=== PATIENT | female | born 1960 | race Caucasian/White ===

== ENCOUNTER → 2019-05-02 12:52 | Outpatient (BNVA) | payer MEDICARE, MEDICAID, SELFPAY | PROVIDERS: Family Provider Physician Assistant; PCP Physician Assistant; Visit Provider Nurse Practitioner | DX: F43.12 Post-traumatic stress disorder, chronic (principal); F41.1 Generalized anxiety disorder; F17.218 Nicotine dependence, cigarettes, with other nicotine-induced disorders | CPT/HCPCS: 99214; 99215 ==

== ENCOUNTER 2019-05-15 13:30 | Outpatient (CLI) | payer MEDICARE, MEDICAID, SELFPAY ==
--- NOTE | 2019-05-15 13:42 | MR_ITS ---
WS: [id number] MRI NECK with and without CONTRAST. COMPARISON: 01/14/2016 Multiplanar, multisequence imaging is performed with and without contrast. Soft tissues and osseous structures to the neck are symmetric and normal. No edema. No muscle loss or asymmetry. There is mild breathing motion artifact through the upper thorax. Thyroid gland and saliv arsenio glands are normal. No masses or adjacent inflammatory process. No adenopathy. Visualized larynx i s negative. Mild degenerative disc disease and bulging in the cervical spine has been described by MRI. No cord c ompression. MR/MR orbit face neck wo/w* [id number] IMPRESSION: No neck mass or adenopathy or enhancing mass identified. Study is not adequate to exclude subtle lesions in the larynx or parapharyngeal soft tissues.
== END 2019-05-15 13:31 | disposition home or self-care (01) ==
LOC: RADWPI 13:37
PROVIDERS: Family Provider Physician Assistant; PCP Physician Assistant; Visit Provider Specialist
DX: H92.02 Otalgia, left ear (principal); H93.13 Tinnitus, bilateral; H90.3 Sensorineural hearing loss, bilateral
CPT/HCPCS: 70543; A9579

== ENCOUNTER → 2019-07-25 07:44 | Outpatient (BNVA) | payer MEDICARE, MEDICAID, SELFPAY | PROVIDERS: Family Provider Physician Assistant; PCP Physician Assistant; Visit Provider Nurse Practitioner | DX: F43.12 Post-traumatic stress disorder, chronic (principal); F41.1 Generalized anxiety disorder | CPT/HCPCS: 99213 ==

== ENCOUNTER 2019-08-27 08:43 | Outpatient (CLI) | payer MEDICARE, MEDICAID, SELFPAY ==
--- NOTE | 2019-08-27 09:07 | MR_ITS ---
WS: [id number] MRI THORACIC SPINE with and without contrast. HISTORY: ARACHNOID CYST OF SPINE COMPARISON: 07/22/2017 and 05/21/2016 TECHNIQUE: Multiplanar sequences are performed in sagittal and axial planes. Status post T3-T6 posterior laminectomies. Mild increase in thoracic kyphosis. Mild change in caliber of the thoracic cord at the T3 level is similar to prior studies. Increasing CSF surrounding the pos terior cord at this level. On the lateral projection there is an increased T2 signal posterior to the thoracic cord causing mild displacement anteriorly and flattening. This change in caliber of the cor d extends over a length of approximately 3 cm centered at the T3 level. No enhancing masses are ident ified. No signal abnormality within the cord. No significant stenosis. No focal disc herniations or contact on the thoracic cord. No enhancing mass es. MR/MR thoracic spine wo/w [id number] IMPRESSION: 1. Stable appearance MRI of thoracic spine over multiple prior years. 2. Prior laminectomies from T3 through T6. 3. Continued mild flattening and mass effect on the thoracic cord at the T3 le derrek. May be due to small adhesions or a small recurrent/residual arachnoid cyst . There is very slight tethering and mass effect on the posterior cord over kyra gth of 3 cm which is similar to prior studies.
== END 2019-08-27 08:44 | disposition home or self-care (01) ==
LOC: RADWPI 08:47
PROVIDERS: Family Provider Physician Assistant; PCP Physician Assistant; Visit Provider Specialist
DX: G93.0 Cerebral cysts (principal)
CPT/HCPCS: 72157; A9579

== ENCOUNTER 2019-09-20 07:56 | Outpatient (CLI) | payer MEDICARE, MEDICAID, SELFPAY ==
--- NOTE | 2019-09-20 08:02 | XR_ITS ---
WS: [id number] CERVICAL SPINE FLEXION EXTENSION TECHNIQUE: 3 views of the cervical spine: lateral neutral, flexion and extension views. CLINICAL INFORMATION: cerevical pain COMPARISON: October 06, 2017 FINDINGS: Straightening of the normal cervical lordosis. Mild spondylitic changes. Normal alignment on the neut ral view. No instability on flexion-extension. Disc space narrowing worse at C5-C6 and C6-C7. Posterior elements are normal. No other significant findings. XR/XR cervical spine fl/ex [id number] IMPRESSION: 1. Straightening of the normal cervical lordosis with mild spondylitic changes . 2. No instability on flexion extension. 3. Disc space narrowing worse at C5-C6 and C6-C7.
--- NOTE | 2019-09-20 08:02 | XR_ITS ---
WS: [id number] LUMBAR SPINE FLEXION AND EXTENSION TECHNIQUE: 3 views of the lumbar spine: Lateral neutral, flexion, and extension views. CLINICAL INFORMATION: lumbar pain COMPARISON: None. FINDINGS: Slight exaggeration of the normal lumbar lordosis with normal alignment on the neutral view. Slight a nterolisthesis L4 on L5 measuring 2 mm. Mild flexion instability. Mild chronic anterior wedging lower thoracic spine at T12. Moderate facet arthropathy L4-L5 and L5-S1. XR/XR lumbar spine f/e only [id number] IMPRESSION: 1. Mild lumbar curve. Normal alignment on the neutral view. 2. Mild flexion instability measuring 2 mm L4-5. 3. Moderate facet arthropathy L4-L5 and L5-S1. 4. Chronic anterior wedging at T12
--- NOTE | 2019-09-20 08:02 | MR_ITS ---
WS: [id number] MRI LUMBAR SPINE NONCONTRAST TECHNIQUE: Sagittal T1, T2 and STIR imaging. Axial T1 and T2 imaging. CLINICAL INFORMATION: lumbar pain COMPARISON: MRI December 10, 2015 FINDINGS: Mild lumbar curve. No acute compression. Mild chronic compression superior endplate T12 is unchanged since 2016. No high-grade central canal stenosis. Mild disc bulging L4-L5 and L5-S1 with a tiny annul ar fissure L5-S1. Prior postoperative changes laminectomies T3-T5 with ventral displacement of the th oracic core unchanged and described on the recent thoracic spine MRI. L1-L2: Normal. L2-L3: Mild facet arthropathy. Spinal canal foramen are patent. L3-L4: Mild annular bulging. Slight narrowing of the right subarticular recess with encroachment nyasia ersing right L4 nerve root. Mild right and no significant left foraminal narrowing. Mild to moderate facet arthropathy. Spinal canal is patent. L4-L5: Mild annular bulging with slight narrowing of the left subarticular recess. Encroachment trave rsing left L5 nerve root. Mild left and no significant right foraminal narrowing. Mild/moderate facet arthropathy. L5-S1: Tiny right pericentral protrusion with slight contact of the traversing right S1 nerve root wi th a tiny annular fissure. Mild left and no significant right foraminal narrowing. Mild facet arthrop athy. Visualized pelvic bony structures: Normal. Paravertebral soft tissues: Normal. MR/MR lumbar spine wo con* [id number] IMPRESSION: 1. Mild lumbar curve. No acute compression. No high-grade central canal stenos is. 2. Mild chronic compression at T12 superior endplate is unchanged. 3. Small right pericentral protrusion L5-S1 with a tiny annular fissure slight ly impinges the traversing right S1 nerve root. This is not significantly kim ed since 2016. Mild left L5-S1 foraminal narrowing. 4. Annular bulging L3-4 with slight narrowing of the right subarticular recess and encroachment traversing L4 nerve root. Mild right foraminal narrowing. 5. Mild annular bulging L4-5 with slight encroachment traversing left L5 nerve root. Mild left foraminal narrowing. 6. Mild to moderate facet arthropathy L3-L4, L4-L5 and L5-S1.
--- NOTE | 2019-09-20 08:02 | MR_ITS ---
WS: [id number] MRI CERVICAL SPINE NONCONTRAST TECHNIQUE: Sagittal T1, T2 and STIR imaging. Axial T2, gradient, and fiesta imaging. CLINICAL INFORMATION: cevical pain COMPARISON: MRI cervical October 06, 2017 and MRI December 13, 2016, MRI July 25, 2015 FINDINGS: Prior postoperative changes laminectomies in the upper thoracic spine at T3-T5. Stable ventral displa cement of the thoracic cord at T3-4 with mild flattening. This is unchanged in appearance since the t horacic MRI August 27, 2019. Straightening of the normal cervical lordosis. Cord signal is normal. C2-C3: Normal. C3-C4: Mild osteophytic ridging. Mild facet arthropathy. Spinal canal and foramen are patent. C4-C5: No significant disc bulging. Mild facet arthropathy. Spinal canal and foramen are patent. C5-C6: Mild disc osteophytic ridging. Mild central canal stenosis. Moderate right and no significant left foraminal narrowing. Mild facet arthropathy. C6-C7: Mild disc osteophyte complex with endplate ridging. Mild to moderate right and no significant left foraminal narrowing. Moderate facet arthropathy. C7-T1: Small central disc protrusion with tiny annular fissure. Mild left and no significant right fo raminal narrowing. Spinal canal is patent Visualized brain stem structures: Normal. Prevertebral soft tissues: Normal. MR/MR cervical spin wo con* [id number] IMPRESSION: 1. Straightening of the normal cervical lordosis. Cord signal is normal. 2. Disc osteophyte complex C5-C6 and moderate right foraminal narrowing unchan ged. Mild central canal stenosis at this level. 3. Mild to moderate right C6-C7 bony foraminal narrowing. 4. Small central disc protrusion at C7-T1 with a tiny annular fissure is uncha nged. Mild left foraminal narrowing at this level. 5. Stable prior postoperative changes T3-T5 with ventral displacement of the t horacic cord with mild flattening. This is unchanged since the recent thoracic spine MRI.
== END 2019-09-20 07:57 | disposition home or self-care (01) ==
LOC: RADWPI 08:01
PROVIDERS: Family Provider Physician Assistant; PCP Physician Assistant; Visit Provider Specialist
DX: G89.29 Other chronic pain (principal); M47.816 Spondylosis without myelopathy or radiculopathy, lumbar region; M48.54XA Collapsed vertebra, not elsewhere classified, thoracic region, initial encounter for fracture; M51.26 Other intervertebral disc displacement, lumbar region; M25.78 Osteophyte, vertebrae; M48.02 Spinal stenosis, cervical region
CPT/HCPCS: 72040; 72120; 72141; 72148

== ENCOUNTER → 2019-10-18 07:55 | Outpatient (BNVA) | payer MEDICARE, MEDICAID, SELFPAY | PROVIDERS: Family Provider Physician Assistant; PCP Physician Assistant; Visit Provider Nurse Practitioner | DX: F41.1 Generalized anxiety disorder (principal); F43.12 Post-traumatic stress disorder, chronic | CPT/HCPCS: 99213 ==

== ENCOUNTER → 2019-12-24 09:19 | Outpatient (BNVA) | payer MEDICARE, MEDICAID, SELFPAY | PROVIDERS: Family Provider Physician Assistant; PCP Physician Assistant; Referring Provider Specialist; Visit Provider Specialist | DX: G43.019 Migraine without aura, intractable, without status migrainosus (principal); G96.19 Other disorders of meninges, not elsewhere classified; F41.1 Generalized anxiety disorder; Z87.891 Personal history of nicotine dependence | CPT/HCPCS: 96372; 99203; J1885 ==

== ENCOUNTER → 2020-01-07 08:08 | Outpatient (BNVA) | payer MEDICARE, MEDICAID, SELFPAY | PROVIDERS: Family Provider Physician Assistant; PCP Physician Assistant; Visit Provider Nurse Practitioner | DX: F43.12 Post-traumatic stress disorder, chronic (principal); F41.1 Generalized anxiety disorder | CPT/HCPCS: 99213 ==

== ENCOUNTER 2020-02-04 11:24 | Outpatient (CLI) | payer MEDICARE, MEDICAID, SELFPAY ==
--- NOTE | 2020-02-04 11:28 | MM_ITS ---
WS: [id number] BILATERAL SCREENING DIGITAL MAMMOGRAM WITH CAD HISTORY: SCREENING COMPARISON: 06/15/2018 and 03/22/2017 and 11/18/2014 Bilateral CC and MLO views submitted. Computer aided detection analyzed. Breast composition: The breasts are heterogeneously dense, which may obscure small masses. No suspici ous masses, microcalcifications or architectural distortion. MM/[place] [id number] IMPRESSION: BI-RADS: 1-Negative FOLLOW UP: 1 Year Follow-up
== END 2020-02-04 11:25 | disposition home or self-care (01) ==
LOC: RADSHAW 11:27
PROVIDERS: PCP Physician Assistant; Visit Provider Physician Assistant
DX: Z12.31 Encounter for screening mammogram for malignant neoplasm of breast (principal)
CPT/HCPCS: 77067

== ENCOUNTER 2020-02-11 07:12 | Outpatient (CLI) | payer MEDICARE, MEDICAID, SELFPAY ==
--- NOTE | 2020-02-11 07:15 | CT_ITS ---
WS: [id number] LDCT LUNG CANCER SCREENING TECHNIQUE: Noncontrast CT of the chest with coronal and sagittal reformatted images. CLINICAL INFORMATION: HX OF TOBACCO USE COMPARISON: None. DLP: 54.85 mGy.cm DIvol: 1.[address] scans at [facility] use at least one of these dose optimization techniques: automat ed exposure control; mA and/or kV adjustment per patient size (includes targeted exams where dose is matched to clinical indication); or iterative reconstruction. FINDINGS: Mild chronic emphysematous changes. No acute pulmonary infiltrates. No focal pneumonia. No pleural fl uid. Thyroid gland is normal. No mediastinal or hilar lymphadenopathy. No axillary lymphadenopathy. Normal GE junction. No suspicious pulmonary parenchymal abnormalities. Mild thoracic kyphosis. Decomp ressive dorsal laminectomy defects in the upper thoracic spine. CT/CT lung screening [id number] IMPRESSION: LUNG-RADS: 1-Negative FOLLOW UP: 12 Month: Continue annual screening with LDCT
== END 2020-02-11 07:13 | disposition home or self-care (01) ==
LOC: CT 07:12
PROVIDERS: PCP Physician Assistant; Visit Provider Physician Assistant
DX: Z12.2 Encounter for screening for malignant neoplasm of respiratory organs (principal); Z87.891 Personal history of nicotine dependence
CPT/HCPCS: G0297

== ENCOUNTER → 2020-04-03 08:32 | Outpatient (BNVA) | payer MEDICARE, MEDICAID, SELFPAY | PROVIDERS: PCP Physician Assistant; Visit Provider Nurse Practitioner | DX: F43.12 Post-traumatic stress disorder, chronic (principal); F41.1 Generalized anxiety disorder | CPT/HCPCS: 99214; 99203 ==

== ENCOUNTER → 2020-05-05 08:07 | Outpatient (BNVA) | payer MEDICARE, MEDICAID, SELFPAY | PROVIDERS: PCP Physician Assistant; Visit Provider Nurse Practitioner | DX: F43.12 Post-traumatic stress disorder, chronic (principal); F41.1 Generalized anxiety disorder | CPT/HCPCS: 99213 ==

== ENCOUNTER → 2020-07-29 09:10 | Outpatient (BNVA) | payer MEDICARE, MEDICAID, SELFPAY | PROVIDERS: PCP Physician Assistant; Visit Provider Nurse Practitioner | DX: F43.12 Post-traumatic stress disorder, chronic (principal); F41.1 Generalized anxiety disorder | CPT/HCPCS: 99214 ==

== ENCOUNTER → 2020-08-20 08:56 | Outpatient (BNVA) | payer MEDICARE, MEDICAID, SELFPAY | PROVIDERS: PCP Physician Assistant; Visit Provider Physician Assistant | DX: Z01.812 Encounter for preprocedural laboratory examination (principal); Z20.822 Contact with and (suspected) exposure to COVID-19 | CPT/HCPCS: 87635 ==

== ENCOUNTER 2020-08-26 08:09 | Outpatient (CLI) | payer MEDICARE, MEDICAID, SELFPAY ==
--- NOTE | 2020-08-26 12:32 | PFTS_ITS ---
Date of Study:08/26/20 Date of Dictation: MECHANICS: Forced vital capacity (FVC) is normal. Forced expiratory volume in one second (FEV1) is normal. FEV1/FVC is normal. FLOW VOLUME LOOP: Mild scooping. LUNG VOLUMES: Total lung capacity (TLC) is normal. Residual volume (RV) is increased. DIFFUSING CAPACITY FOR CARBON MONOXIDE: Normal. INTERPRETATION: The prebronchodilator spirometry is consistent with mild restriction. The postbronchodilator spirometry is normal. There is a significant postbronchodilator response. Lung volumes are consistent with air trapping. Gas exchange (DLCO) is normal. MTDD
== END 2020-08-26 08:10 | disposition home or self-care (01) ==
LOC: RT 08:12
PROVIDERS: PCP Physician Assistant; Visit Provider Physician Assistant
DX: R06.02 Shortness of breath (principal)
CPT/HCPCS: 94060; 94726; 94729; J7611

== ENCOUNTER 2020-09-25 10:28 | Outpatient (CLI) | payer MEDICARE, MEDICAID, SELFPAY ==
--- NOTE | 2020-09-25 10:15 | USCV_ITS ---
Olga Marshall Age: 60 Gender: F : 1960 Exam Date: 09/25/2020 10:55 Ordering Phys: Georges Fuentes MD ([email or web address]) Technologist: Tiana Bocanegra [place] [facility] [place]ication: Chest pain BP: 120 / 78 HR: 57 Rhythm: Sinus Technical Quality: Fair MEASUREMENTS (Male / Female) Normal Values 2D ECHO LV Diastolic Diameter PLAX 3.4 cm 4.2 - 5.9 / 3.9 - 5.3 cm LV Systolic Diameter PLAX 2.3 cm LV Chamber Size 3.6 cm IVS Diastolic Thickness 1.2 cm 0.6 - 1.0 / 0.6 - 0.9 cm IVS Systolic Thickness 1.6 cm LVPW Diastolic Thickness 1.2 cm 0.6 - 1.0 / 0.6 - 0.9 cm LVPW Systolic Thickness 1.0 cm RV Chamber Size 2.6 cm LVOT Diameter 1.7 cm LV Ejection Fraction 2D Teich 61.1 % LV Ejection Fraction MOD 2C 52.9 % LV Ejection Fraction 2C AL 55.6 % LA Diameter 2.6 cm LA Width 1.8 cm LA Height 3.5 cm RA Width 2.9 cm RA Height 3.4 cm Aorta at Sinotubular Diameter 2.1 cm M-MODE LV Diastolic Diameter MM 4.6 cm 4.2 - 5.9 / 3.9 - 5.3 cm LV Systolic Diameter MM 2.7 cm LV Ejection Fraction MM Teich 72.9 % IVS Diastolic Thickness MM 0.9 cm 0.6 - 1.0 / 0.6 - 0.9 cm IVS Systolic Thickness MM 1.1 cm LVPW Diastolic Thickness MM 1.0 cm 0.6 - 1.0 / 0.6 - 0.9 cm LVPW Systolic Thickness MM 1.3 cm RV Diastolic Diameter MM 0.9 cm Aortic Annulus Diameter 2.8 cm LA Ao Ratio MM 1.2 MV E Point Septal Separation 0.4 cm DOPPLER LVOT Peak Velocity 111.0 cm/s MV Area PHT 4.8 cm squared Mitral E to A Ratio 1.1 MV E' Velocity 36.5 cm/s Mitral E to MV E' Ratio 4.8 Mitral E to LV E' Lateral Ratio 4.6 Mitral E to LV E' Septal Ratio 5.0 TR Peak Velocity 193.1 cm/s TR Peak Gradient 14.9 mmHg TR Mean Velocity 182.3 cm/s TR Mean Gradient 13.9 mmHg TR Velocity Time Integral 75.9 cm TV Peak E Velocity 56.0 cm/s Right Atrial Pressure 3.0 mmHg Pulmonary Artery Systolic Pressu 17.9 mmHg PV Peak Velocity 56.0 cm/s RV Acceleration Time 0.1 s RV Ejection Time 0.3 s RV AcT/ET 0.4 FINDINGS Left Ventricle Normal left ventricular cavity size. Normal left ventricular systolic function. No regional wall motion abnormalities. Left ventricular ejection fraction is estimated at 60 %. Grade II/IV diastolic dysfunction, moderately elevated filling pressures. Right Ventricle The right ventricle is normal in size and function. Right Atrium The right atrium is normal in size. Left Atrium The left atrium is normal in size. Mitral Valve Structurally normal mitral valve without significant stenosis or prolapse. There is no mitral regurgitation. Aortic Valve Mild aortic valve calcification. No aortic valve stenosis. Trace aortic valve regurgitation. Tricuspid Valve Structurally normal tricuspid valve without significant stenosis or regurgitation. Pulmonary artery systolic pressure is normal. Pulmonic Valve Structurally normal pulmonic valve without significant stenosis. There is no pulmonic regurgitation. Pericardium Normal pericardium without effusion. Aorta Normal ascending aorta dimension. CONCLUSIONS 1-Normal left ventricular cavity size. Normal left ventricular systolic function. No regional wall motion abnormalities. Left ventricular ejection fraction is estimated at 60 %. Grade II/IV diastolic dysfunction, moderately elevated filling pressures. 2-Structurally normal mitral valve without significant stenosis or prolapse. There is no mitral regurgitation. 3-Mild aortic valve calcification. No aortic valve stenosis. Trace aortic valve regurgitation. 4-There is no pericardial effusion. 5-Pulmonary artery systolic pressure is within normal limits. 6-When compared to the prior echocardiogram dated November 15, 2014 there is no significant change Georges Fuentes MD (Electronically Signed) Final Date: 27 September 2020 12:52 S
--- NOTE | 2020-09-25 11:00 | USCV_ITS ---
JoannaOlga boyer Age: 60 Gender: F : 1960 Exam Date: 09/25/2020 10:20 Ordering Phys: Georges Fuentes MD ([email or web address]) Technologist: Tiana Bocanegra Exam Location: [facility] [place] Indication: Leg pain RIGHT LEFT Brachial 104.00 mmHg Brachial 104.00 mmHg Pressure (mmHg) Waveform Pressure (mmHg) Waveform 113.00 RECREATION ATTENDANT 109.00 113.00 DPA 111.00 1.09 Ankle/Brachial Index 1.07 130.00 Pre-Exercise Toe Pressure 78.00 1.25 Pre-Exercise Toe/Brachial Index 0.75 FINDINGS See measurements listed above. Normal resting ABIs bilaterally Normal resting TBIs bilaterally CONCLUSIONS No significant arterial obstruction, based on the above findings Dr Trey Sotomayor MD FACC (Electronically Signed) Final Date: 25 September 2020 16:38 S
== END 2020-09-25 10:29 | disposition home or self-care (01) ==
LOC: RAD 10:31
PROVIDERS: PCP Physician Assistant; Visit Provider Internal Medicine Cardiovascular Disease
DX: M79.604 Pain in right leg (principal); R07.9 Chest pain, unspecified; R06.02 Shortness of breath; M79.605 Pain in left leg; I35.1 Nonrheumatic aortic (valve) insufficiency
CPT/HCPCS: 93306; 93922

== ENCOUNTER 2020-10-09 09:09 | Outpatient (CLI) | payer MEDICARE, MEDICAID, SELFPAY ==
[2020-10-09 09:27] VITALS: BMI 22.4
--- NOTE | 2020-10-09 09:35 | NMCV_ITS ---
NM ivan perf SPECT r/s* [id number] Olga Marshall Age: 60 Gender: F : 1960 Exam Date: 10/09/2020 10:19 Ordering Phys: Georges Fuentes MD ([email or web address]) Technologist: SEBASTIAN Osborne Exam Location: [facility] Indications: CHEST PAIN STRESS TEST [facility] IMAGE PROTOCOL Rest/Stress 1 Exercise Day Radiopharmaceutical Dose (mCi) Administration Site Administered by Rest: Tc-99m 10.5 IV SEBASTIAN John Sestamimaurisio Stress:Tc-99m 31.8 IV SEBASTIAN John Sestamimaurisio Rest: 09-Oct-2020 60 Discovery 630 Stress: 09-Oct-2020 30 Discovery 630 Radiopharmaceutical was injected at 85 % maximum heart rate. Images obtained in supine and prone position. SPECT RESULTS Technical Quality: Excellent Raw Data Analysis: Normal Image Corrections: No attenuation or motion correction applied Summed Stress Score: 0 Summed Rest Score: 0 Summed Difference Score: 0 PERFUSION FINDINGS There is homogenous radiotracer uptake throughout the myocardium. No evidence of ischemia is noted FUNCTIONAL RESULTS (calculated via Gated SPECT) Stress Image LV EF (%): 80 Stress EDV (mL):65 TID: 1 Stress ESV (mL):13 FUNCTIONAL FINDINGS: There is normal left ventricular systolic function. IMPRESSIONS 1. Normal myocardial perfusion imaging with no evidence of ischemia 2. LV systolic function is normal Duarte Barreto MD (Electronically Signed) Final Date: 09 October 2020 16:46 S
--- NOTE | 2020-10-09 09:35 | ECG_ITS ---
[facility] Test Date: 2020-10-09 Pat Name: Olga Marshall Department: Room: Gender: Female Spot Remover: : 1960 Requested By: Jaz Fuentes Order Number: [id number] Kenia MD: JAZ FUENTES Interpretive Statements NAME OF STUDY: EXERCISE SESTAMIBI STRESS TEST INDICATION: Chest Pain; Shortness of Breath EXERCISE DATA: The patient was exercised by Erich protocol. Baseline heart rate was 51 beats per minute. Baseline blood pressure was 129/74 millimeters of mercury. Target heart rate was 160 beats per minute. Maximum heart rate achieved was 140, which was 87 % of the target heart rate. Maximum blood pressure was 164/97 millimeters of mercury. Total exercise time was 10 minutes 30 seconds. Maximum METs achieved was 13.5, maximum VO2 was 47.3. The reason for ending the test was maximum effort achieved. The patient complained of shortness of breath during the stress test, which then resolved at the end of the test. ELECTROCARDIOGRAM: BASELINE: Showed sinus rhythm, normal axis, no significant ST-T changes at the baseline noted. EXERCISE: At the peak exercise level, nonspecific inferior ST changes otherwise no significant ST-T changes suggestive of ischemia noted. RECOVERY: During the recovery period, heart rate dropped appropriately. No significant ST-T changes in the recovery suggestive of ischemia noted. CONCLUSION: 1. Exercise capacity good. 2. Heart rate response was appropriate. 3. Blood pressure response was appropriate. 4. Symptoms not suggestive of ischemia. 5. Electrocardiogram portion of the stress test was not suggestive of ischemia. 6. Nuclear scan will be documented separately. Electronically Signed On 10-13-2020 21:18:59 CDT by JAZ FUENTES [id number]
[2020-10-09 11:48] VITALS: BP 126/68; PULSE 73
== END 2020-10-09 09:10 | disposition home or self-care (01) ==
LOC: CDL 09:11
PROVIDERS: PCP Physician Assistant; Visit Provider Internal Medicine Cardiovascular Disease
DX: R07.9 Chest pain, unspecified (principal); R06.02 Shortness of breath
CPT/HCPCS: 78452; 93017; A9500

== ENCOUNTER → 2020-10-21 14:52 | Outpatient (BNVA) | payer MEDICARE, MEDICAID, SELFPAY | PROVIDERS: PCP Physician Assistant; Visit Provider Nurse Practitioner | DX: F43.12 Post-traumatic stress disorder, chronic (principal); F41.1 Generalized anxiety disorder | CPT/HCPCS: 99214 ==

== ENCOUNTER → 2021-01-13 12:13 | Outpatient (BNVA) | payer MEDICARE, MEDICAID, SELFPAY | PROVIDERS: PCP Physician Assistant; Visit Provider Nurse Practitioner | DX: F41.1 Generalized anxiety disorder (principal); F17.218 Nicotine dependence, cigarettes, with other nicotine-induced disorders; F43.12 Post-traumatic stress disorder, chronic | CPT/HCPCS: 99214 ==

== ENCOUNTER → 2021-02-26 10:21 | Outpatient (BNVA) | payer MEDICARE, MEDICAID, SELFPAY | PROVIDERS: PCP Physician Assistant; Referring Provider Physician Assistant; Visit Provider Orthopaedic Surgery | DX: M50.020 Cervical disc disorder with myelopathy, mid-cervical region, unspecified level (principal) | CPT/HCPCS: 72050 ==

== ENCOUNTER 2021-03-03 06:00 | Outpatient (RCR) | payer MEDICARE, MEDICAID, SELFPAY | END 2021-03-24 23:59 | disposition home or self-care (01) | LOC: TPT 06:00 | PROVIDERS: PCP Physician Assistant; Referring Provider Orthopaedic Surgery; Visit Provider Orthopaedic Surgery | DX: M54.2 Cervicalgia (principal) | CPT/HCPCS: 97110; 97140; 97162 ==

== ENCOUNTER → 2021-03-09 15:19 | Outpatient (BNVA) | payer MEDICARE, MEDICAID, SELFPAY | PROVIDERS: PCP Physician Assistant; Visit Provider Specialist | DX: G43.019 Migraine without aura, intractable, without status migrainosus (principal); H53.8 Other visual disturbances; M50.90 Cervical disc disorder, unspecified, unspecified cervical region; F41.1 Generalized anxiety disorder; Z87.891 Personal history of nicotine dependence | CPT/HCPCS: 99214; 99215 ==

== ENCOUNTER 2021-03-16 15:29 | Outpatient (CLI) | payer MEDICARE, MEDICAID, SELFPAY ==
--- NOTE | 2021-03-16 16:00 | MR_ITS ---
WS: [id number] MRI CERVICAL SPINE NONCONTRAST HISTORY: M50.90 - Cervical disc disorder, unspecified. COMPARISON: 09/20/2019 Technique: Multiplanar, multisequence noncontrast imaging of the cervical spine. Very mild straightening of the normal cervical lordosis. C5 retrolisthesis by 2 mm. Mild disc space n arrowing and desiccation throughout the cervical spine. There is slight anterior wedging of C7 which is stable. No marrow edema. Patient has prior and previously described laminectomy defects in the upp er thoracic spine starting at T3 which are incompletely included on this examination. There is a foca l area of atrophy and cortical thinning at the T3 level which has been present described and probably related to prior trauma or adhesions. Signal within the cervical cord is normal. Visualized posterior fossa is unremarkable. Craniocervical junction, C1 and C2 relationship, odontoid process and soft tissues are normal. C2-C3: Normal. C3-C4: Mild facet arthritis. No stenosis. C4-C5: Mild diffuse osteophytic ridging and facet arthritis. No stenosis. C5-C6: Mild diffuse annular disc bulging and osteophytic ridging. Mild encroachment upon the ventral thecal sac, greatest on the RIGHT. Effacement of ventral CSF resulting in moderate RIGHT and mild LEF T foraminal stenosis. Mild bilateral facet arthritis. Similar to the prior exam. C6-C7: Mild diffuse annular disc bulging. Moderate RIGHT foraminal disc osteophyte complex with signi ficant displacement of the exiting nerve roots. There is at least moderate RIGHT foraminal stenosis. Mild facet arthritis. C7-T1: Mild annular disc bulging with a central disc protrusion. Very slight narrowing of the LEFT fo ramen. No significant stenosis. Mild facet arthritis. Paraspinal soft tissue are normal. MR/MR cervical spin wo con* [id number] IMPRESSION: 1. MRI cervical spine is similar to the study of 09/20/2019. 2. Moderate RIGHT foraminal stenosis at C6-7 due to disc osteophyte complex. 3. Mild central stenosis at C5-6 with moderate RIGHT and mild LEFT foraminal s tenosis due to disc and osteophyte disease. 4. Mild facet arthritis from C3-4 through C6-7.
--- NOTE | 2021-03-16 16:45 | MR_ITS ---
WS: [id number] MRI THORACIC SPINE noncontrast. HISTORY: Bilateral arm numbness. History of arachnoid cyst. COMPARISON: 08/27/2019, 07/22/2017 TECHNIQUE: Multiplanar sequences are performed in sagittal and axial planes. Status post prior T3, T4 and T5 laminectomy defects. Focal narrowing and concave defect in the thorac ic cord at the T3 level is stable and may be due to adhesions or postsurgical. No fractures or marrow edema. T1-2: Normal. T2-3: Normal. T3-4: Normal. T4-5: Normal. T5-6: Normal. T6-7: Normal. T7-8: Mild facet arthritis. No stenosis. T8-9: Mild facet arthritis. T9-10: Mild bilateral facet arthritis, LEFT greater than RIGHT. T10-11: Mild facet arthritis. T11-12: Normal. MR/MR thoracic spin wo con* [id number] IMPRESSION: 1. Status post thoracic laminectomies at T3, T4 and T5. 2. Concave deformity involving the posterior thoracic cord at T3 is similar to prior studies. May be due to an adhesion or postsurgical in etiology. Neverthe less no interval change. No myelomalacia. 3. No significant central or foraminal stenosis.
== END 2021-03-16 15:30 | disposition home or self-care (01) ==
LOC: RADSHAW 15:32
PROVIDERS: PCP Physician Assistant; Visit Provider Orthopaedic Surgery
DX: Z98.890 Other specified postprocedural states; M50.90 Cervical disc disorder, unspecified, unspecified cervical region
CPT/HCPCS: 72141; 72146

== ENCOUNTER 2021-03-17 15:04 | Outpatient (CLI) | payer MEDICARE, MEDICAID, SELFPAY ==
--- NOTE | 2021-03-17 15:05 | MM_ITS ---
WS: [id number] BILATERAL SCREENING DIGITAL MAMMOGRAM WITH CAD HISTORY: SCREENING COMPARISON: 02/04/2020 and 03/22/2017 and 06/15/2018 Bilateral CC and MLO views submitted. Computer aided detection analyzed. Breast composition: The breasts are heterogeneously dense, which may obscure small masses. No suspici ous masses, microcalcifications or architectural distortion. MM/[place] [id number] IMPRESSION: BI-RADS: 1-Negative FOLLOW UP: 1 Year Follow-up
== END 2021-03-17 15:05 | disposition home or self-care (01) ==
LOC: RADSHAW 15:04
PROVIDERS: PCP Physician Assistant; Visit Provider Physician Assistant
DX: Z12.31 Encounter for screening mammogram for malignant neoplasm of breast (principal)
CPT/HCPCS: 77067

== ENCOUNTER 2021-03-25 06:00 | Outpatient (RCR) | payer MEDICARE, MEDICAID, SELFPAY | END 2021-04-08 23:59 | disposition home or self-care (01) | LOC: TPT 06:00 | PROVIDERS: PCP Physician Assistant; Referring Provider Orthopaedic Surgery; Visit Provider Orthopaedic Surgery | DX: M54.2 Cervicalgia (principal) | CPT/HCPCS: 97110; 97164; 97530 ==

== ENCOUNTER → 2021-04-07 08:20 | Outpatient (BNVA) | payer MEDICARE, MEDICAID, SELFPAY | PROVIDERS: PCP Physician Assistant; Visit Provider Nurse Practitioner | DX: F43.12 Post-traumatic stress disorder, chronic (principal); F41.1 Generalized anxiety disorder; F17.218 Nicotine dependence, cigarettes, with other nicotine-induced disorders | CPT/HCPCS: 99214 ==

== ENCOUNTER 2021-04-08 09:30 | Outpatient (CLI) | payer MEDICARE, MEDICAID, SELFPAY ==
--- NOTE | 2021-04-08 09:30 | MR_ITS ---
WS: [id number] MRA HEAD TECHNIQUE: Axial 3-D TOF images obtained with axial images and axial, sagittal, and coronal 2-D refor matted images. CLINICAL INFORMATION: G43.019 - Migraine without aura, intractable, without sta... COMPARISON: MRI head CTA to FINDINGS: Distal vertebral arteries are patent. Basilar artery is patent. Normal vascularity to the SHIPPING PROCESSOR territo ry bilaterally. Both ICAs are patent at the skull base. Normal cavernous carotid arteries. Normal vascularity to the NATHANIEL and MCA territories bilaterally. No evidence of proximal flow limiting stenosis or aneurysm. MR/MR angio head con [id number] IMPRESSION: Normal intracranial MRA.
== END 2021-04-08 09:31 | disposition home or self-care (01) ==
LOC: RADSHAW 09:35
PROVIDERS: PCP Physician Assistant; Visit Provider Specialist
DX: G43.019 Migraine without aura, intractable, without status migrainosus (principal)
CPT/HCPCS: 70544

== ENCOUNTER → 2021-05-11 10:38 | Outpatient (BNVA) | payer MEDICARE, MEDICAID, SELFPAY | PROVIDERS: PCP Physician Assistant; Visit Provider Specialist | DX: G43.809 Other migraine, not intractable, without status migrainosus (principal); F17.200 Nicotine dependence, unspecified, uncomplicated | CPT/HCPCS: 99214 ==

== ENCOUNTER → 2021-07-06 13:57 | Outpatient (BNVA) | payer MEDICARE, MEDICAID, SELFPAY | PROVIDERS: PCP Physician Assistant; Visit Provider Nurse Practitioner | DX: F43.12 Post-traumatic stress disorder, chronic (principal); F41.1 Generalized anxiety disorder; F17.218 Nicotine dependence, cigarettes, with other nicotine-induced disorders | CPT/HCPCS: 99214 ==

== ENCOUNTER → 2021-07-20 09:35 | Outpatient (BNVA) | payer MEDICARE, MEDICAID, SELFPAY | PROVIDERS: PCP Physician Assistant; Visit Provider Obstetrics & Gynecology | DX: Z12.4 Encounter for screening for malignant neoplasm of cervix (principal) | CPT/HCPCS: 87624 ==

== ENCOUNTER → 2021-10-05 13:45 | Outpatient (BNVA) | payer MEDICARE, MEDICAID, SELFPAY | PROVIDERS: PCP Physician Assistant; Visit Provider Nurse Practitioner | DX: F43.12 Post-traumatic stress disorder, chronic (principal); F41.1 Generalized anxiety disorder; F17.218 Nicotine dependence, cigarettes, with other nicotine-induced disorders | CPT/HCPCS: 99214 ==

== ENCOUNTER → 2021-10-27 10:33 | Outpatient (BNVA) | payer MEDICARE, MEDICAID, SELFPAY | PROVIDERS: PCP Physician Assistant; Visit Provider Orthopaedic Surgery | DX: M50.020 Cervical disc disorder with myelopathy, mid-cervical region, unspecified level (principal) | CPT/HCPCS: 99213; 99214 ==

== ENCOUNTER → 2021-11-24 14:20 | Outpatient (BNVA) | payer MEDICARE, MEDICAID, SELFPAY | PROVIDERS: PCP Physician Assistant; Referring Provider Orthopaedic Surgery; Visit Provider Internal Medicine | DX: Z87.891 Personal history of nicotine dependence (principal); W22.8XXA Striking against or struck by other objects, initial encounter; M81.0 Age-related osteoporosis without current pathological fracture; M25.50 Pain in unspecified joint; T07.XXXA Unspecified multiple injuries, initial encounter | CPT/HCPCS: 99204 ==

== ENCOUNTER → 2021-12-07 13:45 | Outpatient (BNVA) | payer MEDICARE, MEDICAID, SELFPAY | PROVIDERS: PCP Physician Assistant; Visit Provider Internal Medicine Cardiovascular Disease | DX: R07.2 Precordial pain (principal); R06.02 Shortness of breath; F41.1 Generalized anxiety disorder; R00.1 Bradycardia, unspecified | CPT/HCPCS: 93005; 99213; 99214 ==

== ENCOUNTER 2021-12-17 13:58 | Outpatient (CLI) | payer MEDICARE, MEDICAID, SELFPAY ==
--- NOTE | 2021-12-17 14:30 | XR_ITS ---
WS: [id number] DEXA (DUAL ENERGY X-RAY ABSORPTIOMETRY) Bone mineral density was performed using a [employer] machine. HISTORY: Osteoporosis COMPARISON: 01/07/2016 Lumbar spine BMD (L1-L4): 0.801 g/cm2 T score: -3.2 Z score: -1.4 Total hip BMD: Left: 0.674 g/cm2. T score: -2.6 Z score: -1.3 Right: 0.676 g/cm2. T score: -2.6 Z score: -1.3 10 year probability of a major osteoporotic fracture is 35.6%. Compared to the prior study from 01/07/2016. Lumbar spine bone mineral density has decreased by 11.4%. Bilateral hips bone mineral density has decreased by 12.2%. XR/XR DEXA axial skeleton* [id number] IMPRESSION: OSTEOPOROSIS based upon the WHO classification for females. Significant decrease in bone mineral density in the lumbar spine and hips since the prior study.
== END 2021-12-17 13:59 | disposition home or self-care (01) ==
LOC: RAD 13:59
PROVIDERS: PCP Physician Assistant; Visit Provider Internal Medicine
DX: M81.0 Age-related osteoporosis without current pathological fracture (principal)
CPT/HCPCS: 77080

== ENCOUNTER → 2021-12-22 10:36 | Outpatient (BNVA) | payer MEDICARE, MEDICAID, SELFPAY | PROVIDERS: PCP Physician Assistant; Visit Provider Internal Medicine | DX: M81.0 Age-related osteoporosis without current pathological fracture (principal); F41.1 Generalized anxiety disorder | CPT/HCPCS: 80053; 82310; 82652; 83970; 84439; 84443 ==

== ENCOUNTER → 2022-01-05 08:29 | Outpatient (BNVA) | payer MEDICARE, MEDICAID, SELFPAY | PROVIDERS: PCP Physician Assistant; Visit Provider Specialist | DX: G43.019 Migraine without aura, intractable, without status migrainosus (principal); M50.90 Cervical disc disorder, unspecified, unspecified cervical region | CPT/HCPCS: 99213; 99214 ==

== ENCOUNTER → 2022-01-27 10:55 | Outpatient (BNVA) | payer MEDICARE, MEDICAID, SELFPAY | PROVIDERS: PCP Physician Assistant; Referring Provider Internal Medicine; Visit Provider Internal Medicine Rheumatology | DX: M81.0 Age-related osteoporosis without current pathological fracture (principal); M19.90 Unspecified osteoarthritis, unspecified site; M45.6 Ankylosing spondylitis lumbar region; Z11.59 Encounter for screening for other viral diseases; Z79.899 Other long term (current) drug therapy; M25.50 Pain in unspecified joint; Z11.1 Encounter for screening for respiratory tuberculosis | CPT/HCPCS: 36415; 72100; 72170; 73130; 73630; 85025; 85651; 86038; 86140; 86200; 86431; 86480; 86704; 86803; 86812; 87340; 99204 ==

== ENCOUNTER → 2022-03-02 13:15 | Outpatient (BNVA) | payer MEDICARE, MEDICAID, SELFPAY | PROVIDERS: PCP Physician Assistant; Visit Provider Orthopaedic Surgery | DX: M47.12 Other spondylosis with myelopathy, cervical region (principal); M50.222 Other cervical disc displacement at C5-C6 level | CPT/HCPCS: 99213; 99214 ==

== ENCOUNTER 2022-03-22 12:24 | Outpatient (CLI) | payer MEDICARE, MEDICAID, SELFPAY ==
--- NOTE | 2022-03-22 12:54 | MM_ITS ---
WS: [id number] BILATERAL 3D TOMOSYNTHESIS DIGITAL SCREENING MAMMOGRAPHY WITH CAD CLINICAL INFORMATION: SCREENING HISTORY: Screening mammogram. No current complaints. COMPARISON: March 17, 2021 TECHNIQUE: Bilateral CC and MLO views. FINDINGS: The breasts are composed of heterogeneous fibroglandular density tissue, which can limit the detectio n of small underlying mass lesions. No suspicious mass, asymmetry, calcifications, or architectural d istortion. No evidence of malignancy. Incidental punctate calcifications. MM/[place] [id number] IMPRESSION: BI-RADS: 2-Benign FOLLOW UP: 1 Year Follow-up Recommend return to annual screening mammography.
--- NOTE | 2022-03-22 13:15 | CT_ITS ---
WS: [id number] LDCT LUNG CANCER SCREENING TECHNIQUE: Noncontrast CT of the chest with coronal and sagittal reformatted images. CLINICAL INFORMATION: HISTORY OF TOBACCO USE COMPARISON: February 11, 2020 DLP: 68.91 mGy.cm DIvol: Mean CTDIvol: 1.60 (mGy) All CT scans at [facility] use at least one of these dose optimization techniques: automat ed exposure control; mA and/or kV adjustment per patient size (includes targeted exams where dose is matched to clinical indication); or iterative reconstruction. FINDINGS: No suspicious pulmonary parenchymal opacities. Mild chronic emphysematous changes. No acute pulmonary infiltrates. No focal pneumonia. No pleural fluid. No mediastinal or hilar lymphadenopathy. No axillary lymphadenopathy. Normal GE junction. Laminectomy defects upper thoracic spine. CT/CT lung screening [id number] IMPRESSION: LUNG-RADS: 1-Negative FOLLOW UP: 12 Month: Continue annual screening with LDCT
== END 2022-03-22 12:25 | disposition home or self-care (01) ==
LOC: RAD 12:24
PROVIDERS: PCP Physician Assistant; Visit Provider Physician Assistant
DX: Z12.31 Encounter for screening mammogram for malignant neoplasm of breast (principal); Z12.2 Encounter for screening for malignant neoplasm of respiratory organs; Z87.891 Personal history of nicotine dependence
CPT/HCPCS: 71271; 77063; 77067

== ENCOUNTER → 2022-04-01 08:35 | Outpatient (BNVA) | payer MEDICARE, MEDICAID, SELFPAY | PROVIDERS: PCP Physician Assistant; Visit Provider Internal Medicine | DX: M81.0 Age-related osteoporosis without current pathological fracture (principal); T07.XXXA Unspecified multiple injuries, initial encounter; M25.50 Pain in unspecified joint | CPT/HCPCS: 99215 ==

== ENCOUNTER 2022-04-06 10:35 | Outpatient (CLI) | payer MEDICARE, MEDICAID, SELFPAY ==
--- NOTE | 2022-04-06 10:30 | MR_ITS ---
WS: [id number] MRI CERVICAL SPINE NONCONTRAST HISTORY: Neck pain with bilateral arm and hand tingling and numbness. COMPARISON: 03/16/2021 Technique: Multiplanar, multisequence noncontrast imaging of the cervical spine. C5 retrolisthesis by 2.3 mm similar to the prior study. There is new marrow edema along the inferior LEFT lateral C7 vertebral body. Very mild anterior wedging of C7 similar to prior studies. Signal within the cord is normal. Again noted is deformity along the posterior thoracic cord at the T 3 level. Patient had prior surgery for arachnoid cyst removal. This may be a small recurrent cyst or an adhesion. Similar to multiple prior examinations. Craniocervical junction, C1 and C2 relationship, odontoid process and soft tissues are normal. C2-C3: Normal. C3-C4: Normal. C4-C5: Very mild osteophytic ridging. Mild facet joint arthritis. No stenosis. C5-C6: Mild annular disc bulging. Moderate RIGHT foraminal disc osteophyte protrusion causing moderat e RIGHT foraminal stenosis. Very mild narrowing of the central canal. No central stenosis. C6-C7: Mild osteophytic ridging and disc bulging. Moderate RIGHT foraminal disc osteophyte protrusion causing moderate to severe foraminal stenosis. No LEFT foraminal stenosis. Mild bilateral facet join t arthritis. C7-T1: Mild osteophytic ridging. Small central disc protrusion seen on the prior study has nearly com pletely resolved. No significant foraminal stenosis. Paraspinal soft tissue are normal. MR/MR cervical spin wo con* [id number] IMPRESSION: 1. No significant progression of disease or stenosis within the cervical spine . 2. Moderate RIGHT foraminal stenosis at C5-6 due to disc osteophyte complex. N o change. 3. Moderate to severe RIGHT foraminal stenosis at C6-7 due to disc osteophyte disease. 4. New marrow edema in the inferior LEFT lateral C7 vertebral body. May be fabiola ctive marrow edema. The anterior wedging is unchanged. 5. Deformity along the posterior thoracic cord at T3 similar to prior studies and may be postoperative or related to adhesions from a prior arachnoid cyst re moval.
== END 2022-04-06 10:36 | disposition home or self-care (01) ==
LOC: RAD 10:35
PROVIDERS: PCP Physician Assistant; Visit Provider Orthopaedic Surgery
DX: M48.02 Spinal stenosis, cervical region (principal); M54.2 Cervicalgia
CPT/HCPCS: 72141

== ENCOUNTER 2022-04-30 09:09 | Outpatient (CLI) | payer MEDICARE, MEDICAID, SELFPAY ==
--- NOTE | 2022-04-30 09:30 | MR_ITS ---
WS: [id number] MRI THORACIC SPINE WITHOUT CONTRAST TECHNIQUE: Sagittal T1, T2 and STIR imaging. Axial T2 imaging. Noncontrast imaging obtained. CLINICAL INFORMATION: History of arachnoid cyst removal COMPARISON: Multiple prior MRIs dating back to 2014 FINDINGS: Mild thoracic kyphosis. No acute compression. No high-grade central canal stenosis. Normal paraverteb ral soft tissues. Tiny RIGHT pericentral protrusion T12-L1 with slight effacement of ventral thecal s ac. Prior postoperative changes T3-T5 laminectomy defects. Stable mild deformity of the thoracic cord at T3 level is unchanged. Cord signal is normal. This is likely postoperative in etiology. No other suspicious findings. No interval changes compared to previous.Adrenal glands are normal. Nor mal caliber thoracic aorta. Small 7 mm cyst RIGHT hepatic lobe. MR/MR thoracic spin wo con* [id number] IMPRESSION: 1. Mild thoracic kyphosis. No acute compression. No high-grade central canal s tenosis. 2. Prior postoperative changes T3-T5 laminectomy defects. 3. Stable concave deformity of the thoracic cord at the T3 level is unchanged likely postoperative. Cord signal is normal. 4. Mild facet arthropathy in the lower thoracic spine. 5. Tiny RIGHT pericentral protrusion T12-L1 with slight effacement of ventral thecal sac.
== END 2022-04-30 09:10 | disposition home or self-care (01) ==
LOC: RAD 09:14
PROVIDERS: PCP Physician Assistant; Visit Provider Orthopaedic Surgery
DX: M40.294 Other kyphosis, thoracic region (principal); M47.814 Spondylosis without myelopathy or radiculopathy, thoracic region; M51.25 Other intervertebral disc displacement, thoracolumbar region
CPT/HCPCS: 72146

== ENCOUNTER → 2022-05-10 11:26 | Outpatient (BNVA) | payer MEDICARE, MEDICAID, SELFPAY | PROVIDERS: PCP Physician Assistant; Visit Provider Internal Medicine Rheumatology | DX: M25.50 Pain in unspecified joint (principal); M81.0 Age-related osteoporosis without current pathological fracture; M54.50 Low back pain, unspecified; G89.29 Other chronic pain; M25.60 Stiffness of unspecified joint, not elsewhere classified | CPT/HCPCS: 99214 ==

== ENCOUNTER → 2022-05-20 13:28 | Outpatient (BNVA) | payer MEDICARE, MEDICAID, SELFPAY | PROVIDERS: PCP Physician Assistant; Visit Provider Orthopaedic Surgery | DX: M47.12 Other spondylosis with myelopathy, cervical region (principal); M50.323 Other cervical disc degeneration at C6-C7 level | CPT/HCPCS: 99214 ==

== ENCOUNTER → 2022-06-07 13:52 | Outpatient (BNVA) | payer MEDICARE, MEDICAID, SELFPAY | PROVIDERS: PCP Physician Assistant; Visit Provider Internal Medicine Cardiovascular Disease | DX: R07.2 Precordial pain (principal); R06.02 Shortness of breath; I25.10 Atherosclerotic heart disease of native coronary artery without angina pectoris; Z87.891 Personal history of nicotine dependence | CPT/HCPCS: 99214 ==

== ENCOUNTER → 2022-06-21 09:42 | Outpatient (BNVA) | payer MEDICARE, MEDICAID, SELFPAY | PROVIDERS: PCP Physician Assistant; Visit Provider Internal Medicine | DX: M81.0 Age-related osteoporosis without current pathological fracture (principal); T07.XXXA Unspecified multiple injuries, initial encounter; M25.50 Pain in unspecified joint; G43.909 Migraine, unspecified, not intractable, without status migrainosus; X58.XXXA Exposure to other specified factors, initial encounter | CPT/HCPCS: 99214 ==

== ENCOUNTER → 2022-07-05 08:03 | Outpatient (BNVA) | payer MEDICARE, MEDICAID, SELFPAY | PROVIDERS: PCP Physician Assistant; Visit Provider Specialist | DX: G43.709 Chronic migraine without aura, not intractable, without status migrainosus (principal); M47.12 Other spondylosis with myelopathy, cervical region; M81.0 Age-related osteoporosis without current pathological fracture; Z82.49 Family history of ischemic heart disease and other diseases of the circulatory system; R07.9 Chest pain, unspecified | CPT/HCPCS: 99214 ==

== ENCOUNTER → 2022-08-10 10:15 | Outpatient (BNVA) | payer MEDICARE, MEDICAID, SELFPAY | PROVIDERS: PCP Physician Assistant; Visit Provider Internal Medicine Rheumatology | DX: M25.50 Pain in unspecified joint (principal); M81.0 Age-related osteoporosis without current pathological fracture; M54.50 Low back pain, unspecified; G89.29 Other chronic pain; M19.90 Unspecified osteoarthritis, unspecified site | CPT/HCPCS: 99214 ==

== ENCOUNTER → 2022-08-31 13:54 | Outpatient (BNVA) | payer MEDICARE, MEDICAID, SELFPAY | PROVIDERS: PCP Physician Assistant; Visit Provider Orthopaedic Surgery | DX: M54.2 Cervicalgia (principal); R51.9 Headache, unspecified | CPT/HCPCS: 99214 ==

== ENCOUNTER → 2022-09-07 10:34 | Outpatient (BNVA) | payer MEDICARE, MEDICAID, SELFPAY | PROVIDERS: PCP Physician Assistant; Visit Provider Internal Medicine Cardiovascular Disease | DX: R07.2 Precordial pain (principal); R00.1 Bradycardia, unspecified | CPT/HCPCS: 93225 ==

== ENCOUNTER → 2022-10-05 10:44 | Outpatient (BNVA) | payer MEDICARE, MEDICAID, SELFPAY | PROVIDERS: PCP Physician Assistant; Visit Provider Internal Medicine | DX: M81.0 Age-related osteoporosis without current pathological fracture (principal); T07.XXXA Unspecified multiple injuries, initial encounter; M25.50 Pain in unspecified joint; G43.909 Migraine, unspecified, not intractable, without status migrainosus; X58.XXXA Exposure to other specified factors, initial encounter | CPT/HCPCS: 99214 ==

== ENCOUNTER → 2022-11-08 09:04 | Outpatient (BNVA) | payer MEDICARE, MEDICAID, SELFPAY | PROVIDERS: PCP Physician Assistant; Visit Provider Internal Medicine Rheumatology | DX: M19.90 Unspecified osteoarthritis, unspecified site (principal); Z79.899 Other long term (current) drug therapy; M25.569 Pain in unspecified knee; M25.50 Pain in unspecified joint; M81.0 Age-related osteoporosis without current pathological fracture; M54.50 Low back pain, unspecified; G89.29 Other chronic pain | CPT/HCPCS: 99214 ==

== ENCOUNTER → 2022-12-04 16:01 | Outpatient (BNVA) | payer MEDICARE, MEDICAID, SELFPAY | PROVIDERS: PCP Physician Assistant; Visit Provider Emergency Medicine | DX: R05.9 Cough, unspecified (principal) | CPT/HCPCS: 87426 ==

== ENCOUNTER → 2022-12-13 15:22 | Outpatient (BNVA) | payer MEDICARE, MEDICAID, SELFPAY | PROVIDERS: PCP Physician Assistant; Visit Provider Internal Medicine Cardiovascular Disease | DX: R07.2 Precordial pain (principal); F43.12 Post-traumatic stress disorder, chronic; F41.1 Generalized anxiety disorder; R00.2 Palpitations; Z87.891 Personal history of nicotine dependence | CPT/HCPCS: 99213; 99214 ==

== ENCOUNTER → 2023-01-05 13:47 | Outpatient (BNVA) | payer MEDICARE, MEDICAID, SELFPAY | PROVIDERS: PCP Physician Assistant; Visit Provider Specialist | DX: G43.711 Chronic migraine without aura, intractable, with status migrainosus (principal) | CPT/HCPCS: 99212 ==

== ENCOUNTER → 2023-03-29 13:57 | Outpatient (BNVA) | payer MEDICARE, MEDICAID, OTHER, SELFPAY | PROVIDERS: PCP Physician Assistant; Visit Provider Dermatology | DX: L82.1 Other seborrheic keratosis (principal); L57.8 Other skin changes due to chronic exposure to nonionizing radiation; L81.4 Other melanin hyperpigmentation; D48.5 Neoplasm of uncertain behavior of skin; L57.0 Actinic keratosis; L81.5 Leukoderma, not elsewhere classified | CPT/HCPCS: 11102; 17000; 99203 ==

== ENCOUNTER 2023-04-08 05:29 | Emergency (ER) | payer MEDICARE, MEDICAID, SELFPAY ==
[2023-04-08 05:34] VITALS: BP 173/87; PULSE 60; RESP 18; TEMP 36.4; O2SAT 99
--- NOTE | 2023-04-08 05:43 | XRR_ITS ---
PROCEDURE INFORMATION: Exam: XR Right Wrist Exam date and time: 04/08/2023 5:46 AM Age: 62 years old Clinical indication: Wrist; Right; Prior surgery; Surgery date: 3-7 days post-operative; Surgery type: Patient had colonoscopy Tuesday and now has pain where the iv site was. Pain lateral aspect carpal area. TECHNIQUE: Imaging protocol: Radiologic exam of the right wrist. Views: 3 or more views. COMPARISON: CR XR finger RT min 2V [id number] 08/04/2022 11:35 AM FINDINGS: Bones/joints: Demineralization. Chondrocalcinosis. No fracture or dislocation. Soft tissues: Normal. XR/XR wrist RT min 3V* [id number] IMPRESSION: No acute findings.
--- NOTE | 2023-04-08 05:43 | USR_ITS ---
PROCEDURE INFORMATION: Exam: US Duplex Right Lower Extremity Veins, Limited Exam date and time: 04/08/2023 6:07 AM Age: 62 years old Clinical indication: Pain; Hand; Right; Prior surgery; Surgery date: 3-7 days post-operative; Surgery type: Iv placed in aoi for colonoscopy; Additional info: Swelling TECHNIQUE: Imaging protocol: Real-time duplex ultrasound of the right extremity with 2-D maldonado scale, color Doppler flow and spectral waveform analysis including responses to compression and other maneuvers (when performed) with image documentation. Limited exam was focused on the right lower extremity veins. COMPARISON: No relevant prior studies available. FINDINGS: Right deep veins: Unremarkable. The common femoral, femoral, proximal profunda femoral and popliteal veins are patent without thrombus. Normal Doppler waveforms. Normal compressibility and/or augmentation response. Superficial veins: Unremarkable. Saphenofemoral junction is patent without thrombus. Soft tissues: Unremarkable. US/[place] [id number] IMPRESSION: No evidence of deep vein thrombosis.
--- NOTE | 2023-04-08 05:53 | ED_ITS ---
HPI - Extremity Problem 2 General: Chief complaint: Extremity Injury, Upper Stated complaint: Possible Blood Clot, Rt Wrist Time Seen by Provider: 04/08/23 05:32 Source: patient Mode of arrival: ambulatory Limitations: no limitations History of Present Illness: 62-year-old female states that she had a colonoscopy on Tuesday had an IV in her right wrist states she been having right wrist pain since then. States it is painful to touch along with movement she is seen walk-in clinic 2 days ago was placed on antibiotics and steroids but has not had any imaging. She had no fevers rates her pain a 6 out of 10. Associated symptoms: Deny chest pain, fever(s) or rash Review of Systems 2 Const: Denies: fever(s) or chills ENMT: Denies: throat pain or dental pain Card: Denies: chest pain Resp: Denies: dyspnea GI: Denies: abdominal pain, nausea, vomiting or diarrhea Musc: Reports: extremity pain; Denies: neck pain or back pain Skin/Breast: Denies: rash Neuro: Denies: headache(s) PFSH ED 2 PFSH: Medical History Inflammatory arthritis Chronic bilateral low back pain Osteoporosis Polyarthralgia Psychiatric care Claudication in peripheral vascular disease Shortness of breath Cervical disc disease Disc displacement, lumbar Cervical disc disorder with myelopathy of mid-cervical region Spinal arachnoid cyst Nicotine dependence, cigarettes, with other nicotine-induced disorders Generalized anxiety disorder Post-traumatic stress disorder, chronic Surgical History H/O cardiac catheterization H/O laparoscopy to remove cyst Status post hysteroscopic polypectomy 11/08/2018- per Dr. Grover at [facility] History of laminectomy Thoracic laminectomies for fenestration of intradural thoracic arachnoid cyst, with micro dissection; [facility] [place]; 03/24/2015. Family History Grandfather Diabetes paternal Stroke maternal Brother Hyperlipidemia Heart disease Sister Hyperlipidemia Hypertension Breast cancer 50 Father Hypertension Heart disease Mother Stroke Grandmother Stroke paternal Denies family history of Colon cancer Ovarian cancer Clotting disorder Anesthesia complication Bleeding disorder Uterine cancer Thyroid disease Social History Quit status (tobacco/nicotine): has quit using Year quit tobacco: 2017 Former quit date comment: aug 25 2017 Second hand smoke exposure: No Alcohol intake: current Alcohol intake frequency: holidays/special occasions only Lives independently: Yes Marital status: Single Physical Exam 2 Const: COMMON NORMALS: no acute distress, patient oriented x3 and healthy appearing HENMT: COMMON NORMALS: normocephalic and atraumatic HEAD & SCALP: n ormocephalic and atraumatic Neck/C-Spine: COMMON NORMALS: full ROM and supple Chest: COMMONS NORMALS: normal inspection of the chest Resp: COMMON NORMALS: normal respiratory effort GI: INSPECTION: Yes normal to inspection Extremity: NARRATIVE EXTREMITY EXAM: Tenderness noted over right wrist small area of erythema no warmth to touch no signs of septic arthritis Neuro: COMMON NORMALS: patient oriented x3, moves all extremities and no focal motor deficits Psych: COMMON NORMALS: mental status grossly normal, Normal thought process present and cooperative THOUGHT PROCESS: Normal thought process present Skin: COMMON NORMALS: no rashes or lesions noted and no wounds GENERAL SKIN EXAM: no rashes or lesions noted Course 2 Vital Signs: Vital signs: Vital Signs Temperature 97.6 F 04/08/23 05:34 Pulse Rate 60 04/08/23 05:34 Respiratory Rate 18 04/08/23 05:34 Blood Pressure 173/87 04/08/23 05:34 Pulse Oximetry 99 04/08/23 05:34 MDM - Extremity (Nontraumatic) Medical Decision Making Patient presents here with wrist pain after IV insertion ultrasound showed no signs of a DVT or blood clot. Patient x-rays normal exam shows no signs of septic joint her white count is normal she is continue her meds we will place her on Naprosyn she is stable for discharge she is follow-up with PCP and return if worsening. Medical Records I reviewed the patient's medical records. Lab Data I reviewed the patient's lab results. 04/08/23 05:53 Radiology Impressions Venous Duplex 04/08/23 05:43 IMPRESSION: No evidence of deep vein thrombosis. Wrist X-Ray 04/08/23 05:43 IMPRESSION: No acute findings. Laboratory Results WBC 6.09 10^3/uL (3.29-11.43) 04/08/23 05:53 RBC 4.27 10^6/uL (3.85-5.65) 04/08/23 05:53 Hgb 12.50 g/dL (11.27-16.99) 04/08/23 05:53 Hct 37.3 % (36-47) 04/08/23 05:53 MCV 87.4 fl (85-98) 04/08/23 05:53 MCH 29.3 pg (27-33) 04/08/23 05:53 MCHC 33.5 g/dL (30-55) 04/08/23 05:53 RDW 12.2 % (12.1-15.1) 04/08/23 05:53 Plt Count 178 10^3/cmm (157-399) 04/08/23 05:53 MPV 9.8 fL (7.4-10.4) 04/08/23 05:53 Neut % (Auto) 46.5 % 04/08/23 05:53 Lymph % (Auto) 41.1 % 04/08/23 05:53 Lamb % (Auto) 9.0 % 04/08/23 05:53 Eos % (Auto) 2.6 % 04/08/23 05:53 Baso % (Auto) 0.5 % 04/08/23 05:53 Neut # (Auto) 2.83 10^3/uL (1.8-7.7) 04/08/23 05:53 Lymph # (Auto) 2.5 10^3/uL (0.8-4.8) 04/08/23 05:53 Lamb # (Auto) 0.6 10^3/uL (0.2-0.9) 04/08/23 05:53 Eos # (Auto) 0.2 10^3/uL (0.0-0.8) 04/08/23 05:53 Baso # (Auto) 0.0 10^3/uL (0.0-0.1) 04/08/23 05:53 Nucleated RBC % (auto) 0 % 04/08/23 05:53 Nucleated RBCs # 0.0 /100WBC 04/08/23 05:53 All radiology interpretation(s) finalized by discharge Discharge Plan Discharge Patient Disposition: Home Clinical Impression: Right wrist pain Condition: Stable Prescriptions: New Naprosyn 500 mg tablet 500 mg PO BID PRN (Reason: pain) Qty: 20 0RF No Action morphine 10 mg capsule,extend.release pellets 10 mg PO DAILY PRN tramadol 50 mg tablet 50 mg PO Q6H PRN diclofenac sodium 75 mg tablet,delayed release (DR/EC) 75 mg PO BID PRN cyclobenzaprine 10 mg tablet 10 mg PO TID PRN magnesium oxide 420 mg tablet 420 mg PO BID montelukast [Singulair] 10 mg tablet 10 mg PO DAILY Protonix [address] for susp in packet 40 mg PO BID levocetirizine [Xyzal] 5 mg tablet 5 mg PO DAILY olopatadine [Pataday Once Daily Relief] 0.2 % drops 1 drp ophthalmic (eye) DAILY PRN triamcinolone acetonide 0.1 % cream 1 applic topical BID albuterol sulfate [ProAir HFA] 90 mcg/actuation HFA aerosol inhaler 2 puff inhalation Q6H PRN ubrogepant 50 mg tablet See Rx Instructions PO .COMPLEX Qty: 30 3RF Rx Instructions: Take one tablet at onset of headache, then take additional tablet 2-3 hours after. folic acid 1 mg tablet 1 mg PO DAILY Qty: 30 3RF diazepam [Valium] 5 mg tablet 7.5 mg PO .at bed Qty: 45 2RF Discharge Orders: Discharge ED (Routine); Ordered 04/08/23 Ordered By: Fadia Duong Referrals: Karrie Robledo PA [Primary Care Provider] - 1-3 days Discharge Diet: Advance as tolerated Discharge Activity: Resume usual activity Patient Instructions: Arthralgia (ED) Coding Level of Care Code ED [employer] for Brittney Juarez
[2023-04-08 05:57] LABS: Basophils % 0.5 %; Eosinophils # 0.2 10^3/uL (0.0-0.8); Eosinophils % 2.6 %; Hematocrit 37.3 % (36-47); Lymphocytes # 2.5 10^3/uL (0.8-4.8); Lymphocytes % 41.1 %; Mean Corpuscular HGB Conc 33.5 g/dL (30-55); Mean Corpuscular Hemoglobin 29.3 pg (27-33); Mean Corpuscular Volume 87.4 fl (85-98); Mean Platelet Volume 9.8 fL (7.4-10.4); Monocytes # 0.6 10^3/uL (0.2-0.9); Neutrophils # 2.83 10^3/uL (1.8-7.7); Neutrophils % 46.5 %; Nucleated Red Blood Cells % 0 %; Platelet Count 178 10^3/cmm (157-399); Red Blood Count 4.27 10^6/uL (3.85-5.65); Red Cell Distribution Width 12.2 % (12.1-15.1); White Blood Count 6.09 10^3/uL (3.29-11.43)
[2023-04-08] MEDS: ondansetron 2 mg/ML SDV 2 mL 4 MG IVP (06:01)
[2023-04-08] MEDS: morphine 4 mg/mL SDV 1 mL IVP (06:01)
== END 2023-04-08 07:35 | disposition home or self-care (01) ==
PROVIDERS: Emergency Provider Emergency Medicine; PCP Physician Assistant
DX: M25.531 Pain in right wrist (principal); Z87.891 Personal history of nicotine dependence; M79.89 Other specified soft tissue disorders
CPT/HCPCS: 73110; 85025; 93971; 96374; 96375; 99284; J2270; J2405

== ENCOUNTER 2023-04-20 13:16 | Outpatient (CLI) | payer MEDICARE, MEDICAID, SELFPAY ==
--- NOTE | 2023-04-20 13:20 | MM_ITS ---
WS: [id number] BILATERAL 3D TOMOSYNTHESIS DIGITAL SCREENING MAMMOGRAPHY WITH CAD CLINICAL INFORMATION: SCREEN HISTORY: Screening mammogram. No current complaints. COMPARISON: 2021 TECHNIQUE: Bilateral CC and MLO views. FINDINGS: The breasts are composed of heterogeneous fibroglandular density tissue, which can limit the detectio n of small underlying mass lesions. No suspicious mass, asymmetry, calcifications, or architectural d istortion. No evidence of malignancy. A few incidental punctate calcifications. IMPRESSION: MM/[place] [id number] BI-RADS: 2-Benign FOLLOW UP: 1 Year Follow-up Recommend return to annual screening mammography.
== END 2023-04-20 13:17 | disposition home or self-care (01) ==
LOC: RAD 13:17
PROVIDERS: PCP Physician Assistant; Visit Provider Physician Assistant
DX: Z12.31 Encounter for screening mammogram for malignant neoplasm of breast (principal)
CPT/HCPCS: 77063; 77067

== ENCOUNTER → 2023-05-24 11:33 | Outpatient (BNVA) | payer MEDICARE, MEDICAID, SELFPAY | PROVIDERS: PCP Physician Assistant; Visit Provider Internal Medicine | DX: M81.0 Age-related osteoporosis without current pathological fracture (principal); T07.XXXA Unspecified multiple injuries, initial encounter; M25.50 Pain in unspecified joint; G43.909 Migraine, unspecified, not intractable, without status migrainosus; X58.XXXA Exposure to other specified factors, initial encounter | CPT/HCPCS: 99214 ==

== ENCOUNTER 2023-06-06 09:45 | Outpatient (CLI) | payer MEDICARE, MEDICAID, SELFPAY ==
--- NOTE | 2023-06-06 09:51 | CT_ITS ---
WS: [id number] LDCT LUNG CANCER SCREENING HISTORY: Nicotine dependence, cigarettes, uncompllicated TECHNIQUE: Axial imaging performed from the apices to 1 cm below the costophrenic angles. Coronal and sagittal reformats are submitted with axial MIP series. All CT scans at [facility] use at least one of these dose optimization techniques: automated exposure control; mA and/or kV adjustment per patient size (includes targeted exams where dose is matched to clinical indication); or iterativ e reconstruction. DLP: 38.52 mGy.cm DIvol: Mean CTDIvol: 0.80 (mGy) COMPARISON: 03/22/2022 Diagnostic quality: Satisfactory Lungs: There is a nodule in the RIGHT upper lobe closely associated with the vessels. This is similar to 6 prior studies from 02/11/2020 and 03/22/2022 with no increase in size. This may be part of a ve ssel or a pulmonary nodule measuring 6 mm with no change. No additional mass or nodule. No pneumonia. No endobronchial lesions. Heart: Normal size heart with no pericardial effusion.. Other findings: No adenopathy. Very minimal atherosclerotic plaque within the thoracic aorta. No adre nal mass. IMPRESSION: CT/CT lung screening [id number] LUNG-RADS: 2-Benign Appearance or Behavior FOLLOW UP: 12 Month: Continue annual screening with LDCT OTHER FINDINGS (S MODIFIER): None.
== END 2023-06-06 09:46 | disposition home or self-care (01) ==
LOC: RAD 09:46
PROVIDERS: PCP Physician Assistant; Visit Provider Physician Assistant
DX: Z12.2 Encounter for screening for malignant neoplasm of respiratory organs (principal); F17.210 Nicotine dependence, cigarettes, uncomplicated; R91.1 Solitary pulmonary nodule
CPT/HCPCS: 71271

== ENCOUNTER → 2023-06-13 14:12 | Outpatient (BNVA) | payer MEDICARE, MEDICAID, SELFPAY | PROVIDERS: PCP Physician Assistant; Visit Provider Internal Medicine Rheumatology | DX: M25.50 Pain in unspecified joint (principal); M81.0 Age-related osteoporosis without current pathological fracture; M54.50 Low back pain, unspecified; G89.29 Other chronic pain; M19.90 Unspecified osteoarthritis, unspecified site | CPT/HCPCS: 99214 ==

== ENCOUNTER → 2023-06-22 15:07 | Outpatient (BNVA) | payer MEDICARE, MEDICAID, SELFPAY | PROVIDERS: PCP Physician Assistant; Visit Provider Internal Medicine Cardiovascular Disease | DX: R07.2 Precordial pain (principal); F43.12 Post-traumatic stress disorder, chronic; I73.9 Peripheral vascular disease, unspecified; I10 Essential (primary) hypertension | CPT/HCPCS: 99214 ==

== ENCOUNTER → 2023-11-08 08:30 | Outpatient (BNVA) | payer MEDICARE, SELFPAY | PROVIDERS: PCP Physician Assistant; Visit Provider Nurse Practitioner Family | DX: L57.0 Actinic keratosis (principal); L82.0 Inflamed seborrheic keratosis; L02.12 Furuncle of neck; L82.1 Other seborrheic keratosis; L81.5 Leukoderma, not elsewhere classified; L57.8 Other skin changes due to chronic exposure to nonionizing radiation; L81.4 Other melanin hyperpigmentation | CPT/HCPCS: 17000; 17110; 99213 ==

== ENCOUNTER → 2023-11-30 13:09 | Outpatient (BNVA) | payer MEDICARE, SELFPAY | PROVIDERS: PCP Physician Assistant; Visit Provider Internal Medicine Rheumatology | DX: M25.50 Pain in unspecified joint (principal); M81.0 Age-related osteoporosis without current pathological fracture; M19.90 Unspecified osteoarthritis, unspecified site; M06.00 Rheumatoid arthritis without rheumatoid factor, unspecified site; M47.812 Spondylosis without myelopathy or radiculopathy, cervical region | CPT/HCPCS: 99214 ==

== ENCOUNTER → 2024-01-03 14:14 | Outpatient (BNVA) | payer MEDICARE, SELFPAY | PROVIDERS: PCP Physician Assistant; Visit Provider Specialist | DX: G43.711 Chronic migraine without aura, intractable, with status migrainosus (principal) | CPT/HCPCS: 99213 ==

== ENCOUNTER → 2024-03-29 13:23 | Outpatient (BNVA) | payer MEDICARE, SELFPAY | PROVIDERS: PCP Physician Assistant; Visit Provider Internal Medicine Cardiovascular Disease | DX: R00.2 Palpitations (principal); R00.1 Bradycardia, unspecified; R06.02 Shortness of breath; M79.604 Pain in right leg; N18.9 Chronic kidney disease, unspecified | CPT/HCPCS: 36415; 84443; 99214 ==

== ENCOUNTER 2024-04-05 15:11 | Outpatient (CLI) | payer MEDICARE, SELFPAY ==
--- NOTE | 2024-04-05 15:15 | USCV_ITS ---
Olga Marshall Age: 63 Gender: F : 1960 Exam Date: 04/05/2024 15:31 Ordering Phys: Trey Sotomayor MD ([email or web address]) Technologist: ELIZA Exam Location: [facility] [place] Indication: pain HISTORY: Lower extremity pain. PROCEDURES: Venous duplex imaging was performed in only the right lower extremity. The following venous structures were evaluated: common femoral vein, profunda vein, proximal portion of the greater saphenous vein, superficial femoral vein, and the popliteal vein. In addition, the posterior tibial and peroneal trunk were evaluated. FINDINGS: Normal 2-D Doppler and augmentation and compressibility throughout the lower extremity venous structures. Additional imaging through the proximal calf veins also reveals no thrombus. Limited evaluation of the greater saphenous vein is patent with no thrombus. CONCLUSIONS No DVT right lower extremity. Dr. Linn Thomson DO (Electronically Signed) Final Date: 05 April 2024 15:54 S
== END 2024-04-05 15:12 | disposition home or self-care (01) ==
PROVIDERS: PCP Physician Assistant; Visit Provider Internal Medicine Cardiovascular Disease
DX: M79.604 Pain in right leg (principal); R06.02 Shortness of breath
CPT/HCPCS: 93971

== ENCOUNTER 2024-05-29 14:19 | Outpatient (CLI) | payer MEDICARE, SELFPAY ==
--- NOTE | 2024-05-29 14:20 | MM_ITS ---
WS: [id number] BILATERAL 3D TOMOSYNTHESIS DIGITAL SCREENING MAMMOGRAM WITH CAD CLINICAL INFORMATION: SCREENING HISTORY: Screening mammogram. No current complaints. COMPARISON: 2022 TECHNIQUE: Bilateral CC and MLO. FINDINGS: The breast are composed of extremely dense tissue, which can limit the detection of small underlying mass lesions. No suspicious focal mass, asymmetry, calcifications, or architectural distortion. No evidence of malignancy. Few tiny incidental punctate calcifications throughout MM/MM scr tomosynthesis [id number] IMPRESSION: DENSITY: The breasts are heterogeneously dense, which may obscure small masses. BI-RADS: 2 - Benign FOLLOW UP: 1 Year Follow-up Recommend return to annual screening mammography.
== END 2024-05-29 14:20 | disposition home or self-care (01) ==
LOC: MOBLMAM 14:22
PROVIDERS: PCP Physician Assistant; Visit Provider Physician Assistant
DX: Z12.31 Encounter for screening mammogram for malignant neoplasm of breast (principal); R92.333 Mammographic heterogeneous density, bilateral breasts; R92.343 Mammographic extreme density, bilateral breasts
CPT/HCPCS: 77063; 77067

== ENCOUNTER → 2024-09-24 09:14 | Outpatient (BNVA) | payer MEDICARE, SELFPAY | PROVIDERS: PCP Physician Assistant; Visit Provider Nurse Practitioner Family | DX: I25.10 Atherosclerotic heart disease of native coronary artery without angina pectoris (principal); R00.1 Bradycardia, unspecified; I10 Essential (primary) hypertension; J44.9 Chronic obstructive pulmonary disease, unspecified; F17.218 Nicotine dependence, cigarettes, with other nicotine-induced disorders | CPT/HCPCS: 99214 ==

== ENCOUNTER 2024-09-25 11:23 | Outpatient (CLI) | payer OTHER, SELFPAY ==
--- NOTE | 2024-09-25 11:32 | CT_ITS ---
WS: [id number] LDCT LUNG CANCER SCREENING TECHNIQUE: Noncontrast CT of the chest with coronal and sagittal reformatted images. CLINICAL INFORMATION: NICOTINE DEPENDENCE COMPARISON: 2023 DLP: 48.17 mGy.cm DIvol: Mean CTDIvol: 0.80 (mGy) All CT scans at [facility] use at least one of these dose optimization techniques: automated exposure control; mA and/or kV adjustment per patient size (includes targeted exams where dose is matched to clinical indication); or iterative reconstruction. FINDINGS: Stable long-term stability 6 mm nodule RIGHT upper lobe closely associated with a cluster of vessels. No new suspicious pulmonary parenchymal abnormalities. No mediastinal or hilar lymphadenopathy. Mild aortic calcification. Tiny esophageal hiatal hernia. No axillary lymphadenopathy. Mild thoracic curve and kyphosis. Prior laminectomy defects in the upper thoracic spine. CT/CT lung screening [id number] IMPRESSION: LUNG-RADS: 2-Benign Appearance or Behavior FOLLOW UP: 12 Month: Continue annual screening with LDCT
== END 2024-09-25 11:24 | disposition home or self-care (01) ==
PROVIDERS: PCP Physician Assistant; Visit Provider Physician Assistant
DX: Z12.2 Encounter for screening for malignant neoplasm of respiratory organs (principal); Z87.891 Personal history of nicotine dependence; R91.1 Solitary pulmonary nodule; I70.0 Atherosclerosis of aorta; M43.8X4 Other specified deforming dorsopathies, thoracic region; M96.89 Other intraoperative and postprocedural complications and disorders of the musculoskeletal system
CPT/HCPCS: 71271

== ENCOUNTER → 2024-11-07 08:17 | Outpatient (BNVA) | payer OTHER, SELFPAY | PROVIDERS: PCP Physician Assistant; Visit Provider Nurse Practitioner Family | DX: L73.9 Follicular disorder, unspecified (principal); L82.1 Other seborrheic keratosis; L81.4 Other melanin hyperpigmentation; L72.0 Epidermal cyst; L82.0 Inflamed seborrheic keratosis; R20.9 Unspecified disturbances of skin sensation | CPT/HCPCS: 17000; 17110; 99213 ==

== ENCOUNTER → 2024-12-25 13:06 | Outpatient (BNVA) | payer MEDICARE, SELFPAY | PROVIDERS: PCP Physician Assistant; Visit Provider Specialist | DX: G43.711 Chronic migraine without aura, intractable, with status migrainosus (principal) | CPT/HCPCS: 99212 ==